=== PATIENT | female | born 1990 | race Caucasian/White ===

== ENCOUNTER 2020-03-20 06:12 | Inpatient (IN) ==
[2020-03-20] MEDS ORDERED: LR 1000 ML IV 1,000 ML IV ONE (06:17)
[2020-03-20] MEDS ORDERED: ANCEF 1 GRAM IV PREMIX* 1 G/50 ML BAG IV ONE (06:17)
[2020-03-20] MEDS ORDERED: ANCEF VIAL 1 GRAM IVP ONE (06:36)
[2020-03-20] MEDS ORDERED: D5 1/2 NS 1000 ML 1,000 ML IV SCH (06:36)
[2020-03-20] MEDS ORDERED: DILAUDID INJ ONE (07:14)
[2020-03-20] MEDS ORDERED: D5 1/2 NS 1L W PITOCIN 20 UNITS/L 20 UNITS/1,000 ML BAG IV ONE (08:02)
[2020-03-20] MEDS ORDERED: ZOFRAN INJ 4 MG VIAL IVP PRN ×2 (08:53→09:23)
[2020-03-20] MEDS ORDERED: PHENERGAN INJ 25 MG IM PRN (08:53)
[2020-03-20] MEDS ORDERED: BENADRYL INJ 50 MG VIAL IVP PRN (08:53)
[2020-03-20] MEDS ORDERED: REGLAN INJ 10 MG VIAL IVP PRN ×2 (08:53→09:23)
[2020-03-20] MEDS ORDERED: DILAUDID INJ IVP PRN (08:53)
[2020-03-20] MEDS ORDERED: ZOFRAN INJ 4 MG VIAL ONE (09:04)
[2020-03-20] MEDS ORDERED: PITOCIN ONE (09:05)
[2020-03-20] MEDS ORDERED: XYLOCAINE 1 % (PLAIN) ONE (09:05)
[2020-03-20] MEDS ORDERED: MARCAINE SPINAL ONE (09:05)
[2020-03-20] MEDS ORDERED: VERSED ONE (09:05)
[2020-03-20] MEDS ORDERED: MYLICON TAB 80 MG CHEW PO PRN (09:23)
[2020-03-20] MEDS ORDERED: TORADOL 30 MG VIAL IVP PRN (09:23)
[2020-03-20] MEDS ORDERED: PERCOCET TAB 5/325 MG PO PRN (09:23)
[2020-03-20] MEDS ORDERED: ADACEL or BOOSTRIX TDaP VACCINE IM ONE (09:23)
[2020-03-20] MEDS ORDERED: NARCAN INJ IVP PRN (09:23)
[2020-03-20] MEDS ORDERED: VALIUM PO PRN (09:23)
[2020-03-20] MEDS ORDERED: D5 1/2 NS 1000 ML 1,000 ML with PITOCIN 20 UNITS IV SCH ×2 (09:23)
[2020-03-20] MEDS: BENADRYL INJ 50 MG VIAL IVP PRN ×2 (10:39→15:00)
[2020-03-20] MEDS: PRENATAL PLUS PO SCH (10:48)
[2020-03-20] MEDS: PREVACID PO SCH (10:52)
[2020-03-20] MEDS ORDERED: COLACE CAP 100 MG PO ONE (13:37)
[2020-03-20] MEDS: PERCOCET TAB 5/325 MG PO PRN (13:45)
[2020-03-20] MEDS: COLACE CAP 100 MG PO SCH (21:00)
[2020-03-20] MEDS: MOTRIN TAB 800 MG PO PRN (21:00)
[2020-03-20] MEDS: BACTROBAN TOPICAL OINT TOP SCH (21:01)
[2020-03-21] MEDS: MOTRIN TAB 800 MG PO PRN (04:13)
[2020-03-21 05:22] LABS: HEMOGLOBIN 9.8 g/dL (12.0-16.0)
[2020-03-21] MEDS: BACTROBAN TOPICAL OINT TOP SCH (06:24)
[2020-03-21] MEDS: PERCOCET TAB 5/325 MG PO PRN (09:09)
[2020-03-21] MEDS: PRENATAL PLUS PO SCH (09:12)
[2020-03-21] MEDS: COLACE CAP 100 MG PO SCH (09:12)
[2020-03-21] MEDS: PREVACID PO SCH (09:12)
[2020-03-21 10:57] VITALS: BP 126/74
[2020-03-21] MEDS ORDERED: ZOFRAN TAB 4 MG PO ONE (11:46)
[2020-03-21] MEDS ORDERED: ZOFRAN TAB 4 MG ONE (11:47)
== END 2020-03-21 11:50 | disposition home or self-care (01) | DRG 785 ==
LOC: LD 06:12 → MED/SURG 09:22
PROVIDERS: ADMIT Specialist; ATTEND Specialist
DX: Z37.0 Single live birth; N85.8 Other specified noninflammatory disorders of uterus; Z3A.39 39 weeks gestation of pregnancy; Z23 Encounter for immunization; O34.211 Maternal care for low transverse scar from previous cesarean delivery; O99.89 Other specified diseases and conditions complicating pregnancy, childbirth and the puerperium; Z30.2 Encounter for sterilization; O99.343 Other mental disorders complicating pregnancy, third trimester
CPT/HCPCS: 36415; 85014; 85018; 90715; A4216; A4222; J0690; J1170; J1200; J2250; J2405; J2590; J3490; J7120; S0119; S0181; S0197

== ENCOUNTER 2022-04-30 06:34 | Inpatient (IN) ==
[2022-04-30] MEDS ORDERED: FENTANYL VIAL INJ 100 mcg ONE ×2 (06:40→07:45)
[2022-04-30] MEDS ORDERED: VERSED ONE (06:40)
[2022-04-30] MEDS ORDERED: ZOFRAN INJ 4 MG VIAL ONE (06:41)
[2022-04-30] MEDS ORDERED: BRIDION ONE (06:41)
[2022-04-30] MEDS ORDERED: REGLAN INJ 10 MG VIAL ONE (06:41)
[2022-04-30] MEDS ORDERED: PEPCID 20 MG VIAL ONE (06:41)
[2022-04-30] MEDS ORDERED: OFIRMEV IV 1000 MG VIAL 1,000 MG/100 ML VIAL IV ONE (06:41)
[2022-04-30] MEDS ORDERED: ZEMURON 100 MG VIAL ONE (06:41)
[2022-04-30] MEDS ORDERED: DIPRIVAN VIAL 20 ML ONE (06:41)
[2022-04-30] MEDS ORDERED: ProvayBLUE 0.5% ONE (06:46)
[2022-04-30] MEDS ORDERED: BETADINE SOLN ONE (06:47)
[2022-04-30] MEDS ORDERED: ANCEF VIAL 1 GRAM IVP ONE (06:49)
[2022-04-30] MEDS ORDERED: XYLOCAINE 2 % (PLAIN) ONE (06:50)
[2022-04-30] MEDS ORDERED: D5 1/2 NS 1,000 ML 1,000 ML IV ONE (06:52)
[2022-04-30] MEDS ORDERED: TORADOL 30 MG VIAL ONE (06:52)
[2022-04-30] MEDS ORDERED: ANCEF VIAL 1 GRAM ONE (06:53)
[2022-04-30] MEDS ORDERED: NS 100 ML IV 100 ML ONE (06:53)
[2022-04-30] MEDS ORDERED: BARHEMSYS INJ ONE ×2 (07:01→09:39)
[2022-04-30] MEDS ORDERED: DECADRON INJ ONE (07:03)
[2022-04-30 07:18] VITALS: BMI 22.4
[2022-04-30] MEDS ORDERED: LR 1,000 ML IV 1,000 ML IV ONE (08:26)
[2022-04-30] MEDS ORDERED: SUPRANE ONE (09:21)
[2022-04-30] MEDS: DILAUDID INJ IVP PRN ×4 (09:38→10:03)
[2022-04-30] MEDS ORDERED: DILAUDID INJ ONE (09:38)
[2022-04-30] MEDS ORDERED: BENADRYL INJ 50 MG VIAL IVP PRN ×2 (09:42→10:07)
[2022-04-30] MEDS ORDERED: PHENERGAN INJ 25 MG IM PRN ×2 (09:42→12:09)
[2022-04-30] MEDS ORDERED: REGLAN INJ 10 MG VIAL IVP PRN (09:42)
[2022-04-30] MEDS ORDERED: BARHEMSYS INJ IVP PRN (09:42)
[2022-04-30] MEDS ORDERED: ZOFRAN INJ 4 MG VIAL IVP PRN (09:42)
[2022-04-30] MEDS: D5 1/2 NS 1,000 ML 1,000 ML IV SCH ×4 (10:59→19:10)
[2022-04-30] MEDS: MORPHINE SULFATE PCA 30 MG IVP PRN ×2 (11:00→15:13)
[2022-04-30] MEDS ORDERED: VALIUM PO PRN (12:12)
[2022-04-30] MEDS: TORADOL 30 MG VIAL IVP PRN (12:21)
[2022-04-30] MEDS: ZOFRAN INJ 4 MG VIAL IVP PRN (13:40)
[2022-05-01] MEDS: D5 1/2 NS 1,000 ML 1,000 ML IV SCH ×9 (00:06→23:24)
[2022-05-01] MEDS: ZOFRAN INJ 4 MG VIAL IVP PRN (03:25)
[2022-05-01] MEDS: TORADOL 30 MG VIAL IVP PRN (03:25)
[2022-05-01 04:25] LABS: BLOOD UREA NITROGEN 7 mg/dL (7-18); CALCIUM 8.2 mg/dL (8.5-10.1); CARBON DIOXIDE 28.2 mmol/L (21-32); CHLORIDE 104 mmol/L (98-107); COR NA(FOR HYPERGLY) 138 mmol/L (136-145); CREATININE 0.83 mg/dL (0.55-1.02); SODIUM 138 mmol/L (136-145); eGFR NON BLACK RACES > 60 (>60)
[2022-05-01 04:37] LABS: BASOPHILS # (AUTO) 0.1 X10^3/uL (0.0-0.1); BASOPHILS % (AUTO) 0.8 % (0.2-1.0); EOSINOPHILS # (AUTO) 0.1 x10^3/uL (0.0-0.2); EOSINOPHILS % (AUTO) 0.9 % (0.9-2.9); HEMATOCRIT 27.1 % (36.0-47.0); LYMPHOCYTES # (AUTO) 2.6 X10^3/uL (1.3-2.9); LYMPHOCYTES % (AUTO) 35.5 % (21.0-51.0); MEAN CORPUSCULAR HEMOGLOBIN 30.3 pg (27.0-34.0); MEAN CORPUSCULAR HGB CONC 35.6 g/dL (33.0-35.0); MEAN CORPUSCULAR VOLUME 85.2 fL (80.0-100.0); MEAN PLATELET VOLUME 8.2 fL (7.4-11.0); MONOCYTES # (AUTO) 0.6 x10^3/uL (0.3-0.8); MONOCYTES % (AUTO) 8.5 % (0.0-13.0); NEUTROPHILS % (AUTO) 54.3 % (42.0-75.0); RED BLOOD COUNT 3.18 X10^6/uL (3.5-5.4); RED CELL DISTRIBUTION WIDTH 12.5 % (11.6-16.5); WHITE BLOOD COUNT 7.4 X10^3/uL (3.6-10.0)
[2022-05-01 04:40] LABS: HEMOGLOBIN 9.6 g/dL (12.0-16.0)
[2022-05-01] MEDS: MYLICON TAB 80 MG CHEW PO PRN ×3 (04:49→20:41)
[2022-05-01] MEDS: COLACE CAP 100 MG PO SCH ×2 (08:03→20:41)
[2022-05-01] MEDS: PREVACID PO SCH (08:03)
[2022-05-01] MEDS: ESTRACE PO SCH (08:03)
[2022-05-01] MEDS ORDERED: VALIUM PO SCH (09:00)
[2022-05-01] MEDS: PERCOCET TAB 5/325 MG PO PRN ×3 (09:49→23:25)
[2022-05-01] MEDS: MOTRIN TAB 800 MG PO PRN ×2 (11:42→18:11)
[2022-05-01] MEDS: BACTROBAN TOPICAL OINT TOP SCH ×2 (13:58→23:24)
[2022-05-02] MEDS: MOTRIN TAB 800 MG PO PRN (03:25)
[2022-05-02] MEDS: BACTROBAN TOPICAL OINT TOP SCH (06:00)
[2022-05-02] MEDS: D5 1/2 NS 1,000 ML 1,000 ML IV SCH (06:00)
[2022-05-02] MEDS: PERCOCET TAB 5/325 MG PO PRN (06:01)
[2022-05-02] MEDS: MYLICON TAB 80 MG CHEW PO PRN (06:01)
[2022-05-02] MEDS: ESTRACE PO SCH (07:59)
[2022-05-02] MEDS: COLACE CAP 100 MG PO SCH (08:00)
[2022-05-02] MEDS: PREVACID PO SCH (08:00)
[2022-05-02 08:40] VITALS: BP 112/69
== END 2022-05-02 09:40 | disposition home or self-care (01) | DRG 743 ==
LOC: MED/SURG 06:34
PROVIDERS: ADMIT Specialist; ATTEND Specialist
DX: N94.4 Primary dysmenorrhea; N92.5 Other specified irregular menstruation; R10.2 Pelvic and perineal pain; N83.299 Other ovarian cyst, unspecified side